=== PATIENT | male | born 1970 | race Caucasian/White ===

== ENCOUNTER 2022-08-07 06:15 | Day surgery (SDC) | payer BC, SELFPAY ==
[2022-08-07] VITALS (12 sets, daily range): BP systolic 125–146; BP diastolic 84–98; PULSE 56–76; RESP 16; TEMP 36.3–36.9; O2SAT 96–100; BMI 30.4
[2022-08-07] MEDS: LACTATED RINGERS 1000 ML 1,000 ML 100 ML IV ×2 (06:10→09:15)
[2022-08-07] MEDS: SODIUM CHLORIDE 0.9 % (FLUSH) 10 ML SYRINGE IVF (06:49)
[2022-08-07] MEDS: CEFAZOLIN 2 GM INJ IVP (07:47)
[2022-08-07] MEDS: BUPIVACAINE 0.25% 30 ML INJECTION ×2 (08:06→09:33)
--- NOTE | 2022-08-07 09:57 | PM.GSPRC ---
Operative Note Date of procedure: 08/07/22 Pre-op diagnosis: 1. Right inguinal hernia repair 2. Perianal skin tag Post-op diagnosis: Same Type of Procedure: 1. Laparoscopic right inguinal hernia repair with mesh 2. Excision of perianal skin tag Indications: Patient is a 51-year-old male who presented to clinic with a symptomatic right inguinal hernia, as well as symptomatic perianal skin tags. Please see consultation note for full discussion. Risks and benefits of operative intervention were discussed at length with the patient. Risks included but was not limited to: Bleeding, infection, risk of damage to surrounding structures, possible need for additional procedures, possible need to convert to an open operation and postoperative complications such as pneumonia, pulmonary emboli or ME. All questions and concerns were addressed with the patient agreeing to proceed. Procedure Description: After discussing the risks and benefits of the procedure, the patient signed informed consent.? The operative site was marked and the patient was brought to the operating room and placed on the operating table in supine position.? Care was taken to pad the patient's pressure points.?? The patient was then intubated by anesthesia.?? The operative site was then prepped and draped in the usual sterile fashion.? A time-out was then performed. A curvilinear incision was made below the umbilicus. Dissection was carried down to subcutaneous tissue until the anterior rectus fascia was encountered. This was incised off the midline. The rectus muscles were then retracted exposing the posterior fascia. A space maker port with a dissecting balloon was then introduced. The preperitoneal space was inflated under direct vision. The balloon was then removed and the preperitoneal space insufflated. A 10 mm 0 degree scope was then advanced and the area was surveyed for bleeding. Dissection began on the right side. Gerson's ligament and the pubic bone was exposed medially. Following this dissection was carried out laterally. A indirect and small direct defect was noted. The sac was dissected free from the cord structures and anterior abdominal wall using a combination of sharp and blunt dissection. Once the sac was completely reduced, the cord structures were dissected a large 3D Bard mesh for the appropriate side was placed into the abdomen. This was positioned around the cord structures. A Tacker was used to attach the mesh medially at Gerson's ligament. Once this was completed the sac was placed on top of the mesh and the preperitoneal space desufflated under direct vision. The ports were removed. The fascia from the infraumbilical port was closed with 0 Vicryl. The skin incisions were closed with absorbable subcuticular suture. Patient was then repositioned in lithotomy positioning. A sterile prep and drape was done in the usual fashion. A formal timeout for patient safety was performed in accordance with hospital protocol, thereby correctly matching this patient with their diagnosis and intended procedure. External examination, digital rectal examination, and anoscopic examination were all done and revealed a prominent perianal skin tag left lateral. An elliptical incision was made surrounding the skin tag and the redundant skin removed. Care was taken not to injure any underlying muscles. Hemostasis was assured with electrocautery. The incision was then closed with a 4-0 chromic suture via a locking stitch towards the anal verge with a running baseball stitch into the anal canal tying down at the apex. The patient tolerated procedure well. There were no apparent complications. Instrument, sponge, and needle counts were correct at the end of the case. Sterile dressings were then applied. The scrotum was examined to ensure that both testicles were down. Instrument sponge and needle counts were correct at the end of the case. Findings: Moderate-sized indirect right inguinal hernia, small direct hernia. Single perianal skin tag removed. Anesthesia: GETA Surgeon: Vicki Manriquez MD Estimated blood loss (mL): 5 Additional Specimen Information: Perianal skin tag Condition: stable Disposition: same day
--- NOTE | 2022-08-07 09:58 | W.ANESCHARGE ---
Anesthesia Charges Start Date/Time Anesthesia Start Date: 08/07/22 Anesthesia Start Time: 07:37 Stop Date/Time Anesthesia Stop Date: 08/07/22 Anesthesia Stop Time: 10:01
--- NOTE | 2022-08-07 10:15 | W.ANESCHARGE ---
Anesthesia Charges Start Date/Time Anesthesia Start Date: 08/07/22 Anesthesia Start Time: 07:37 Stop Date/Time Anesthesia Stop Date: 08/07/22 Anesthesia Stop Time: 10:01
== END 2022-08-07 11:34 | disposition home or self-care (01) ==
PROVIDERS: PCP Family Medicine; Visit Provider Surgery
PROC: (CPT 49650; principal; 2022-08-07 07:30)
PROC: (CPT 49650; 2022-08-07 07:30)
DX: K40.90 Unilateral inguinal hernia, without obstruction or gangrene, not specified as recurrent (principal); K64.4 Residual hemorrhoidal skin tags
CPT/HCPCS: 49650; 46220; 00830; 00860; 88305; C1781; J0330; J0690; J1100; J1885; J2250; J2405; J2704; J2710; J3010; J3490; J7120

== ENCOUNTER 2024-12-16 07:05 | Outpatient (CLI) | payer OTHER, SELFPAY ==
--- NOTE | 2024-12-16 08:10 | P.ANES_ITS ---
Anesthesia Charges Start Date/Time Anesthesia Start Date: 12/16/24 Anesthesia Start Time: 07:47 Stop Date/Time Anesthesia Stop Date: 12/16/24 Anesthesia Stop Time: 08:07 Coding CPT Codes CPT Codes: JASS LWR INTST SCR COLSC - 73340 ([id number]) P2 - PATIENT W/MILD SYST DISEASE, QK - INSTITUTIONAL RESEARCH DIRECTOR 2-4 CNCRNT ANES PROC, QX - NUTRITION MANAGER SVC W/ MD MED DIRECTION
--- NOTE | 2024-12-16 08:10 | W.ANESCHARGE ---
Anesthesia Charges Start Date/Time Anesthesia Start Date: 12/16/24 Anesthesia Start Time: 07:47 Stop Date/Time Anesthesia Stop Date: 12/16/24 Anesthesia Stop Time: 08:07 Coding CPT Codes CPT Codes: JASS LWR INTST SCR COLSC - 89030 ([id number]) P2 - PATIENT W/MILD SYST DISEASE, QK - MANAGER CHEMICAL 2-4 CNCRNT ANES PROC, QX - NATURAL GAS TREATING UNIT OPERATOR SVC W/ MD MED DIRECTION
--- NOTE | 2024-12-16 08:37 | P.ANES_ITS ---
Anesthesia Charges Start Date/Time Anesthesia Start Date: 12/16/24 Anesthesia Start Time: 07:47 Stop Date/Time Anesthesia Stop Date: 12/16/24 Anesthesia Stop Time: 08:07 Coding CPT Codes CPT Codes: JASS LWR INTST SCR COLSC - [id number] ([id number]) QK - RESTAURANT RECRUITER 2-4 CNCRNT JASS PROC, QX - CERAMIC MAKER DEMONSTRATOR SVC W/ MD MED DIRECTION, P2 - PATIENT W/MILD SYST DISEASE
--- NOTE | 2024-12-16 08:37 | W.ANESCHARGE ---
Anesthesia Charges Start Date/Time Anesthesia Start Date: 12/16/24 Anesthesia Start Time: 07:47 Stop Date/Time Anesthesia Stop Date: 12/16/24 Anesthesia Stop Time: 08:07 Coding CPT Codes CPT Codes: JASS LWR INTST SCR COLSC - [id number] ([id number]) QK - VISUAL MERCHANDISING ASSISTANT 2-4 CNCRNT JASS PROC, QX - TECHNICAL TRAINING INSTRUCTOR SVC W/ MD MED DIRECTION, P2 - PATIENT W/MILD SYST DISEASE
== END 2024-12-16 07:06 | disposition home or self-care (01) ==
LOC: OP CLINIC 07:08
PROVIDERS: PCP Family Medicine; Visit Provider Internal Medicine Gastroenterology
DX: Z12.11 Encounter for screening for malignant neoplasm of colon (principal)
CPT/HCPCS: 00812; 45378; J2704

== ENCOUNTER 2024-12-22 14:24 | Outpatient (RCR) | payer OTHER, SELFPAY | END 2025-04-21 23:59 | disposition home or self-care (01) | PROVIDERS: PCP Family Medicine; Visit Provider Orthopaedic Surgery | DX: M22.42 Chondromalacia patellae, left knee (principal); M23.42 Loose body in knee, left knee; S83.095D Other dislocation of left patella, subsequent encounter; G89.29 Other chronic pain; Z02.6 Encounter for examination for insurance purposes; Z51.89 Encounter for other specified aftercare | CPT/HCPCS: 97110; 97161 ==